=== PATIENT | male | born 1970 | race Two or more races ===

== ENCOUNTER 2017-09-02 16:32 | Emergency (ER) | payer OTHER ==
[~2017-09-02] VITALS: Ht 180.3 cm; Wt 87.1 kg
[~2017-09-02 16:32] MED LIST: AMBIEN10 MG; AMBIEN10 MG PO; AMBIEN5 MG; CIPRO500 MG PO; IBUPROFEN800 MG PO; KETO10TA2 PO; NAPROXEN SODIU550 MG; NEXIUM40 MG/PACK; PRILOSEC10 MG; SMZ-TMP DS 800-1 TAB PO; ULTRAM50 MG PO
== END 2017-09-02 22:18 | disposition home or self-care (01) ==
LOC: ER 16:32
DX: R07.89 Other chest pain (principal)

== ENCOUNTER 2017-10-26 19:02 | Emergency (ER) | payer OTHER ==
[~2017-10-26] VITALS: Ht 177.8 cm; Wt 87.5 kg
== END 2017-10-26 21:18 | disposition home or self-care (01) ==
LOC: ER 19:02
DX: R30.0 Dysuria (principal); R53.1 Weakness

== ENCOUNTER → 2018-02-23 | Emergency (ER) | payer OTHER ==
[~2018-02-23] VITALS: Ht 180.3 cm; Wt 88.5 kg
== END | disposition home or self-care (01) ==
LOC: ER 17:12
DX: R10.30 Lower abdominal pain, unspecified (principal)

== ENCOUNTER 2018-08-27 09:33 | Emergency (ER) | payer OTHER ==
[~2018-08-27] VITALS: Ht 180.3 cm; Wt 86.2 kg
== END 2018-08-27 13:15 | disposition home or self-care (01) ==
LOC: ER 09:33
DX: K52.9 Noninfective gastroenteritis and colitis, unspecified (principal); G89.11 Acute pain due to trauma; M79.645 Pain in left finger(s)

== ENCOUNTER → 2018-12-08 | Emergency (ER) | payer OTHER ==
[~2018-12-08] VITALS: Ht 180.3 cm; Wt 88.5 kg
[~2018-12-08] MED LIST changes: +DICLOFENAC SODI50 MG PO; +FLONASE ALLERG9.9 ML NASAL; +SYMBICORT 16010.2 GM IH; +TESSALON PERLE100 M1 PO; +TRAMADOL HCL50 MG
== END | disposition home or self-care (01) ==
LOC: ER 13:30
DX: J06.9 Acute upper respiratory infection, unspecified (principal); R05 Cough; R10.2 Pelvic and perineal pain

== ENCOUNTER 2021-07-04 09:54 | Emergency (ER) | payer OTHER ==
[~2021-07-04] VITALS: Ht 180.3 cm; Wt 88.5 kg
[2021-07-04] MEDS ORDERED: AMBIEN10 MG PO (10:15)
[2021-07-04] MEDS ORDERED: TRAMADOL HCL E100 MG PO (10:15)
[2021-07-04] MEDS ORDERED: LIRICA (10:16)
[2021-07-04] MEDS ORDERED: SKELAXIN800 MG PO (10:16)
== END 2021-07-04 17:07 | disposition home or self-care (01) ==
LOC: ER 09:54
DX: R10.2 Pelvic and perineal pain (principal); N50.811 Right testicular pain

== ENCOUNTER 2021-07-08 09:55 | Emergency (ER) | payer OTHER ==
[~2021-07-08] VITALS: Ht 180.3 cm; Wt 88.5 kg
[~2021-07-08 09:55] MED LIST changes: +LIRICA; +SKELAXIN800 MG PO; +TRAMADOL HCL E100 MG PO
== END 2021-07-08 14:02 | disposition home or self-care (01) ==
LOC: ER 09:55
DX: N50.811 Right testicular pain (principal)

== ENCOUNTER 2021-12-04 07:47 | Emergency (ER) | payer OTHER ==
[~2021-12-04] VITALS: Ht 180.3 cm; Wt 90.7 kg
== END 2021-12-04 14:15 | disposition home or self-care (01) ==
LOC: ER 07:47
DX: R10.84 Generalized abdominal pain (principal); R19.7 Diarrhea, unspecified
CPT/HCPCS: 36415; 74177; Q9965

== ENCOUNTER 2022-06-15 00:57 | Emergency (ER) | payer OTHER ==
[~2022-06-15] VITALS: Ht 180.3 cm; Wt 90.7 kg
[2022-06-15] MEDS ORDERED: AMBIEN10 MG PO (01:44)
[2022-06-15] MEDS ORDERED: BUDESONIDE0.5 MG/2 M IH (08:38)
[2022-06-15] MEDS ORDERED: PHENAGIL TABLE1 EACH PO (08:38)
[2022-06-15] MEDS ORDERED: ZYNCOF 20-400120 ML PO (08:38)
[2022-06-15] MEDS ORDERED: ALBUTEROL2.5 MG/3 M IH (08:38)
== END 2022-06-15 08:52 ==
LOC: ER 00:57
DX: J40 Bronchitis, not specified as acute or chronic (principal); Z20.822 Contact with and (suspected) exposure to COVID-19